=== PATIENT | female | born 1960 ===

== ENCOUNTER → 2022-08-25 | Day surgery (SDC) | payer OTHER ==
[~2022-08-25] VITALS: Ht 172.7 cm; Wt 115.7 kg
[~2022-08-25] MED LIST: ACID REDUCER20 M1 PO; AVAPRO150 MG PO; ETODOLAC500 MG PO; TEMAZEPAM22.5 MG PO; TRAZODONE HCL50 MG PO
== END | disposition home or self-care (01) ==
LOC: ADM 08-19 07:00 → CIR.AMB 07:00
PROVIDERS: ATTEND Orthopaedic Surgery
DX: G56.21 Lesion of ulnar nerve, right upper limb (principal); Z20.822 Contact with and (suspected) exposure to COVID-19; I10 Essential (primary) hypertension